=== PATIENT | female | born 1975 | race African-American/Black ===

== ENCOUNTER 2016-10-29 15:13 | Emergency (ER) | payer OTHER | END 2016-10-29 16:06 | disposition left against medical advice (07) | LOC: ER 16:06 | DX: Z53.21 Procedure and treatment not carried out due to patient leaving prior to being seen by health care provider (principal) | CPT/HCPCS: Z7610 ×2 ==

== ENCOUNTER 2016-11-30 14:05 | Inpatient (IN) | payer OTHER ==
[~2016-11-30] VITALS: Ht 167.6 cm; Wt 127.0 kg
[2016-11-30] MEDS ORDERED: KETOROLAC 30MG/ML VIAL IV ONE (14:45)
[2016-11-30 15:06] LABS: CHLORIDE 109 mEq/L (98-107); HEMATOCRIT. 28.4 % (36.0-48.0); HEMOGLOBIN. 8.9 g/dL (12.0-16.0); MEAN CORPUSCULAR HEMOGLOBIN 21.1 pg (28.0-32.0); MEAN CORPUSCULAR VOLUME 67.2 fL (81.0-99.0); MEAN PLATELET VOLUME 8.3 fl (7.4-10.4); PLATELET 337 x1000/uL (130-400); RED BLOOD CELL COUNT 4.22 mill/uL (4.2-5.4)
[2016-11-30 15:10] LABS: INR 1.1; PARTIAL THROMBOPLASTIN TIME 25.2 sec (23.4-31.0); PROTHROMBIN TIME 10.9 sec (9.4-11.6)
[2016-11-30 15:15] LABS: CARBON DIOXIDE 24 mEq/L (21-32); TROPONIN I < 0.02 ng/mL (0.00-0.04)
[2016-11-30] MEDS ORDERED: METHYLPREDNISOLONE SOD SUCC 125 MG/2 ML VIAL IV ONE (16:15)
[2016-11-30] MEDS ORDERED: ASPIRIN 325MG TABLET PO ONE (16:15)
[2016-11-30] MEDS ORDERED: MORPHINE SULFATE 4 MG/ML CPJ (NOT FOR IM USE) IV ONE (16:15)
[2016-11-30 16:45] LABS: PLATELET ESTIMATE NORMAL
[2016-11-30] MEDS ORDERED: IBUPROFEN 600MG TABLET PO PRN (17:00)
[2016-11-30] MEDS ORDERED: ACETAMINOPHEN 325MG TABLET PO PRN ×2 (17:00→19:00)
[2016-11-30] MEDS ORDERED: ONDANSETRON HCL 4MG/2ML VIAL IV PRN (19:00)
[2016-11-30] MEDS ORDERED: HYDROCODONE/ACETAMINOPHEN 5/325MG TABLET PO PRN (19:00)
[2016-11-30] MEDS ORDERED: IPRATROPIUM/ALBUTEROL 0.5-3(2.5)MG/3ML NEB INH PRN (19:00)
[2016-11-30] MEDS: DIPHENHYDRAMINE 50MG/ML VIAL IV PRN (19:02)
[2016-11-30] MEDS: MORPHINE SULFATE 4 MG/ML CPJ (NOT FOR IM USE) IV PRN ×2 (19:03→23:15)
[2016-11-30 20:00] VITALS: BP 135/67
[2016-11-30 20:37] VITALS: BP 145/74
[2016-11-30] MEDS: METHYLPREDNISOLONE SOD SUCC 125 MG/2 ML VIAL IV SCH (23:15)
[2016-11-30] MEDS: SODIUM CHLORIDE 0.9% INJ 3ML FLUSH IVF SCH (23:16)
[2016-11-30 23:19] LABS: CREATINE KINASE 54 IU/L (26-192); TROPONIN I < 0.02 ng/mL (0.00-0.04)
[2016-12-01] VITALS (9 sets, daily range): BP systolic 133–144; BP diastolic 64–73
[2016-12-01] MEDS ORDERED: ZOLPIDEM TARTRATE 5MG TABLET PO PRN (00:45)
[2016-12-01] MEDS: DIPHENHYDRAMINE 50MG/ML VIAL IV PRN ×3 (01:17→17:04)
[2016-12-01] MEDS: MORPHINE SULFATE 4 MG/ML CPJ (NOT FOR IM USE) IV PRN ×5 (04:11→21:01)
[2016-12-01] MEDS: METHYLPREDNISOLONE SOD SUCC 125 MG/2 ML VIAL IV SCH ×2 (04:14→08:18)
[2016-12-01] MEDS: SODIUM CHLORIDE 0.9% INJ 3ML FLUSH IVF SCH (06:26)
[2016-12-01 06:28] LABS: BASOPHILS % 0.2 % (0.0-2.0); HEMATOCRIT. 29.5 % (36.0-48.0); HEMOGLOBIN. 9.1 g/dL (12.0-16.0); LYMPHOCYTES % 9.5 % (20.0-50.0); MEAN CORPUSCULAR HEMOGLOBIN 20.9 pg (28.0-32.0); MEAN CORPUSCULAR VOLUME 67.9 fL (81.0-99.0); MEAN PLATELET VOLUME 8.6 fl (7.4-10.4); MONOCYTES % 0.7 % (2.0-8.0); NEUTROPHILS % 89.6 % (40.0-76.0); PLATELET 358 x1000/uL (130-400); RED BLOOD CELL COUNT 4.34 mill/uL (4.2-5.4); RED CELL DISTRIBUTION WIDTH 18.1 % (11.6-14.6)
[2016-12-01 07:53] LABS: CARBON DIOXIDE 20 mEq/L (21-32); CHLORIDE 108 mEq/L (98-107)
[2016-12-01 07:59] LABS: CREATINE KINASE 55 IU/L (26-192); HDL CHOLESTEROL 38 mg/dL (40-59); LDL CHOLESTEROL 106 mg/dL (5-100); TROPONIN I < 0.02 ng/mL (0.00-0.04)
[2016-12-01 08:48] LABS: CLARITY URINE TURBID (CLEAR); COLOR URINE YELLOW (YELLOW); GLUCOSE URINE 3+ (NEGATIVE); KETONES URINE 1+ (NEGATIVE); LEUKOCYTE ESTERASE URINE NEGATIVE (NEGATIVE); NITRITE URINE NEGATIVE (NEGATIVE); OCCULT BLOOD URINE NEGATIVE (NEGATIVE); PH URINE 5.5 (4.5-8.0); PROTEIN URINE NEGATIVE (NEGATIVE); SPECIFIC GRAVITY URINE 1.039 (1.005-1.030); UROBILINOGEN URINE 0.2 E.U./dL (0.2-1.0)
[2016-12-01 09:43] LABS: *AMPHETAMINES SCREEN URINE NEGATIVE (NEGATIVE); *BARBITURATES SCREEN URINE NEGATIVE (NEGATIVE); *BENZODIAZEPINES SCREEN URINE NEGATIVE (NEGATIVE); *COCAINE SCREEN URINE NEGATIVE (NEGATIVE); METHADONE URINE SCREEN NEGATIVE (NEGATIVE); PHENCYCLIDINE URINE SCREEN NEGATIVE (NEGATIVE)
[2016-12-01 10:07] LABS: CANNABINOID URINE SCREEN PRESUMTIVE POSITIVE (NEGATIVE); OPIATES URINE SCREEN PRESUMTIVE POSITIVE (NEGATIVE)
[2016-12-01 14:26] LABS: T4 FREE 0.94 ng/dL (0.76-1.46)
[2016-12-01 16:57] LABS: CREATINE KINASE 47 IU/L (26-192); CREATINE KINASE MB FRACTION < 0.5 ng/mL (0.5-3.6); TROPONIN I < 0.02 ng/mL (0.00-0.04)
[2016-12-01 18:53] LABS: HCG SCREEN NEGATIVE
== END 2016-12-01 21:27 | disposition short-term general hospital (02) | DRG 313 ==
LOC: ER 14:05 → 5WST 16:55 → ENRESERV 17:57 → UNDODISIN 12-01 13:50
PROVIDERS: ADMIT Family Medicine; ATTEND Family Medicine
DX: R07.9 Chest pain, unspecified (principal); I25.110 Atherosclerotic heart disease of native coronary artery with unstable angina pectoris; I10 Essential (primary) hypertension; D64.9 Anemia, unspecified; M54.30 Sciatica, unspecified side; R73.9 Hyperglycemia, unspecified; F12.90 Cannabis use, unspecified, uncomplicated; D86.9 Sarcoidosis, unspecified; E78.5 Hyperlipidemia, unspecified; F41.9 Anxiety disorder, unspecified; Z87.01 Personal history of pneumonia (recurrent); Z87.891 Personal history of nicotine dependence; Z95.0 Presence of cardiac pacemaker
CPT/HCPCS: 36415; 71010; 80053; 80061; 80305; 81001; 81025; 82550; 82553; 83036; 83880; 84439; 84443; 84484; 84703; 85025; 85379; 85610; 85730; 93005; 96374; 96375; 99285; J1200; J1885; J2270; J2930

== ENCOUNTER 2017-03-12 20:44 | Inpatient (IN) | payer OTHER ==
[~2017-03-12] VITALS: Ht 167.6 cm; Wt 127.0 kg
[2017-03-13] MEDS ORDERED: IPRATROPIUM BROMIDE (0.02%) 0.5MG/2.5ML NEB HHN STA (00:37)
[2017-03-13] MEDS ORDERED: ALBUTEROL (0.083%) 2.5MG/3ML NEB HHN STA (00:37)
[2017-03-13] MEDS ORDERED: METHYLPREDNISOLONE SOD SUCC 125 MG/2 ML VIAL IV STA (00:37)
[2017-03-13] MEDS ORDERED: ASPIRIN 81MG TABLET PO ONE (00:45)
[2017-03-13 01:16] LABS: BASOPHILS % 0.8 % (0.0-2.0); EOSINOPHILS % 2.1 % (0.0-5.0); HEMATOCRIT. 28.5 % (36.0-48.0); HEMOGLOBIN. 8.5 g/dL (12.0-16.0); LYMPHOCYTES % 20.9 % (20.0-50.0); MEAN CORPUSCULAR HEMOGLOBIN 19.7 pg (28.0-32.0); MEAN CORPUSCULAR VOLUME 65.9 fL (81.0-99.0); MEAN PLATELET VOLUME 7.5 fl (7.4-10.4); MONOCYTES % 14.1 % (2.0-8.0); NEUTROPHILS % 62.1 % (40.0-76.0); PLATELET 237 x1000/uL (130-400); RED BLOOD CELL COUNT 4.32 mill/uL (4.2-5.4)
[2017-03-13 01:18] LABS: PLATELET ESTIMATE NORMAL
[2017-03-13 01:22] LABS: INR 1.2; PROTHROMBIN TIME 12.1 sec (9.4-11.6)
[2017-03-13 01:32] LABS: CARBON DIOXIDE 23 mEq/L (21-32); CHLORIDE 108 mEq/L (98-107); TROPONIN I < 0.02 ng/mL (0.00-0.04)
[2017-03-13] MEDS ORDERED: KETOROLAC 30MG/ML VIAL IV ONE (01:45)
[2017-03-13] MEDS ORDERED: MORPHINE SULFATE 2 MG/ML CPJ (NOT FOR IM USE) IV ONE (03:15)
[2017-03-13] MEDS ORDERED: IPRATROPIUM/ALBUTEROL 0.5-3(2.5)MG/3ML NEB INH PRN (06:30)
[2017-03-13] MEDS ORDERED: MAGNESIUM/ALUMINUM HYDROXIDE/SIMETHICONE 30ML UDC PO PRN (06:30)
[2017-03-13] MEDS ORDERED: DOCUSATE SODIUM 100MG CAPSULE PO PRN (06:30)
[2017-03-13] MEDS ORDERED: ONDANSETRON HCL 4MG/2ML VIAL IV PRN (06:30)
[2017-03-13] MEDS ORDERED: NA PHOS,M-B/NA PHOS,DI-BA ENEMA 118ML PR PRN (06:30)
[2017-03-13] MEDS ORDERED: CLONIDINE 0.1MG TABLET PO PRN (06:30)
[2017-03-13] MEDS ORDERED: ACETAMINOPHEN 325MG TABLET PO PRN (06:30)
[2017-03-13] MEDS ORDERED: HYDROCODONE/APAP 7.5/325MG 1 TAB TABLET PO PRN (06:30)
[2017-03-13] MEDS: MORPHINE SULFATE 2 MG/ML CPJ (NOT FOR IM USE) IV PRN ×4 (08:24→20:30)
[2017-03-13] MEDS: GUAIFENESIN 200MG/10ML SUGAR FREE UDC PO PRN ×2 (08:56→20:29)
[2017-03-13] MEDS ORDERED: ASPIRIN 81MG EC TABLET PO SCH (09:00)
[2017-03-13] MEDS ORDERED: REGADENOSON 0.4 MG/5 ML IV NR (09:15)
[2017-03-13] MEDS: DIPHENHYDRAMINE 50MG/ML VIAL IV PRN ×3 (11:51→20:30)
[2017-03-13] MEDS: LORAZEPAM 0.5MG TABLET PO PRN ×3 (11:52→21:49)
[2017-03-13 12:04] LABS: *AMPHETAMINES SCREEN URINE NEGATIVE (NEGATIVE); *BARBITURATES SCREEN URINE NEGATIVE (NEGATIVE); *BENZODIAZEPINES SCREEN URINE NEGATIVE (NEGATIVE); *COCAINE SCREEN URINE NEGATIVE (NEGATIVE); METHADONE URINE SCREEN NEGATIVE (NEGATIVE); PHENCYCLIDINE URINE SCREEN NEGATIVE (NEGATIVE)
[2017-03-13 12:05] LABS: CANNABINOID URINE SCREEN PRESUMTIVE POSITIVE (NEGATIVE); OPIATES URINE SCREEN PRESUMTIVE POSITIVE (NEGATIVE)
[2017-03-13 12:30] VITALS: BP 115/77
[2017-03-13 13:58] VITALS: BP 115/77
[2017-03-13 16:00] VITALS: BP 125/69
[2017-03-13 18:33] LABS: CARBON DIOXIDE 22 mEq/L (21-32); CHLORIDE 107 mEq/L (98-107); CREATINE KINASE 307 IU/L (26-192); TROPONIN I < 0.02 ng/mL (0.00-0.04)
[2017-03-13 18:34] LABS: CREATINE KINASE MB FRACTION 0.6 ng/mL (0.5-3.6)
[2017-03-13 20:00] VITALS: BP 111/58
[2017-03-13] MEDS: ENOXAPARIN 40MG/0.4ML SYR SUBCUT SCH ×2 (20:29→20:34)
[2017-03-14] VITALS: BP 132/78
[2017-03-14] MEDS: DIPHENHYDRAMINE 50MG/ML VIAL IV PRN ×4 (00:35→15:39)
[2017-03-14] MEDS: MORPHINE SULFATE 2 MG/ML CPJ (NOT FOR IM USE) IV PRN ×4 (00:36→15:40)
[2017-03-14 01:35] LABS: CREATINE KINASE 261 IU/L (26-192); CREATINE KINASE MB FRACTION 0.5 ng/mL (0.5-3.6); TROPONIN I < 0.02 ng/mL (0.00-0.04)
[2017-03-14 04:00] VITALS: BP 122/65
[2017-03-14] MEDS: GUAIFENESIN 200MG/10ML SUGAR FREE UDC PO PRN (05:20)
[2017-03-14] MEDS: ENOXAPARIN 40MG/0.4ML SYR SUBCUT SCH (08:54)
[2017-03-14] MEDS ORDERED: ASPIRIN 81MG TABLET PO SCH (09:00)
[2017-03-14] MEDS: LORAZEPAM 0.5MG TABLET PO PRN ×2 (10:26→15:39)
[2017-03-14 10:29] LABS: BASOPHILS % 0.6 % (0.0-2.0); EOSINOPHILS % 0.6 % (0.0-5.0); HEMATOCRIT. 30.1 % (36.0-48.0); HEMOGLOBIN. 9.3 g/dL (12.0-16.0); LYMPHOCYTES % 18.3 % (20.0-50.0); MEAN CORPUSCULAR HEMOGLOBIN 20.2 pg (28.0-32.0); MEAN CORPUSCULAR VOLUME 65.4 fL (81.0-99.0); MEAN PLATELET VOLUME 8.4 fl (7.4-10.4); MONOCYTES % 8.9 % (2.0-8.0); NEUTROPHILS % 71.6 % (40.0-76.0); PLATELET 308 x1000/uL (130-400); RED CELL DISTRIBUTION WIDTH 19.2 % (11.6-14.6)
[2017-03-14 11:13] LABS: CARBON DIOXIDE 23 mEq/L (21-32); CHLORIDE 109 mEq/L (98-107); CREATINE KINASE 209 IU/L (26-192); CREATINE KINASE MB FRACTION 0.6 ng/mL (0.5-3.6); HDL CHOLESTEROL 25 mg/dL (40-59); LDL CHOLESTEROL 93 mg/dL (5-100); T4 FREE 0.98 ng/dL (0.76-1.46)
[2017-03-14 13:22] VITALS: BP 111/84
[2017-03-14 15:40] VITALS: BP 111/84
== END 2017-03-14 17:10 | disposition home or self-care (01) | DRG 313 ==
LOC: ER 21:20 → EDBEDREQTM 03-13 04:02 → EDBEDREQ 03-13 04:02 → EDBEDREQSVC 03-13 08:01 → ENRESERV 03-13 12:57 → 7WST 03-13 13:30
PROVIDERS: ADMIT Internal Medicine; ATTEND Internal Medicine
DX: R07.89 Other chest pain (principal); I25.10 Atherosclerotic heart disease of native coronary artery without angina pectoris; Z68.42 Body mass index [BMI] 45.0-49.9, adult; F41.9 Anxiety disorder, unspecified; J45.909 Unspecified asthma, uncomplicated; E66.9 Obesity, unspecified; I10 Essential (primary) hypertension; Z95.0 Presence of cardiac pacemaker
CPT/HCPCS: 36415; 71010; 80048; 80053; 80061; 80305; 81025; 82550; 82553; 83036; 83880; 84439; 84443; 84484; 85025; 85379; 85610; 93005; 93306; 94640; 94664; 96374; 96375; 99285; J1200; J1650; J1885; J2270; J2930; J7040; J7611; J7620

== ENCOUNTER 2018-09-05 21:31 | Inpatient (IN) | payer SELFPAY ==
[~2018-09-05] VITALS: Ht 167.6 cm; Wt 125.6 kg
[~2018-09-05 21:31] MED LIST: ATOR20TA PO; FERR325T23 PO
[2018-09-05] MEDS ORDERED: MORPHINE SULFATE 4 MG/ML CPJ (NOT FOR IM USE) IV STA (23:12)
[2018-09-05] MEDS ORDERED: ONDANSETRON HCL 4MG/2ML INJ IV STA (23:12)
[2018-09-05] MEDS ORDERED: ASPIRIN 81MG TABLET PO ONE (23:15)
[2018-09-05] MEDS ORDERED: FUROSEMIDE 40MG/4ML VIAL IV ONE (23:15)
[2018-09-05 23:54] LABS: EOSINOPHILS % 4.8 % (0.0-5.0); HEMATOCRIT. 26.2 % (36.0-48.0); HEMOGLOBIN. 7.9 g/dL (12.0-16.0); LYMPHOCYTES % 27.1 % (20.0-50.0); MEAN CORPUSCULAR HEMOGLOBIN 19.1 pg (28.0-32.0); MEAN CORPUSCULAR VOLUME 63.2 fL (81.0-99.0); MEAN PLATELET VOLUME 7.8 fl (7.4-10.4); MONOCYTES % 10.8 % (2.0-8.0); NEUTROPHILS % 56.3 % (40.0-76.0); PLATELET 313 x1000/uL (130-400); RED BLOOD CELL COUNT 4.15 mill/uL (4.2-5.4); RED CELL DISTRIBUTION WIDTH 18.9 % (11.6-14.6)
[2018-09-05 23:56] LABS: CHLORIDE 109 mEq/L (98-107)
[2018-09-06 00:01] LABS: ETHANOL BLOOD < 10 mg/dL
[2018-09-06 00:16] LABS: INR 1.1; PARTIAL THROMBOPLASTIN TIME 28.1 sec (23.4-31.0); PROTHROMBIN TIME 10.9 sec (9.6-11.0)
[2018-09-06 00:54] LABS: PLATELET ESTIMATE NORMAL
[2018-09-06 01:26] LABS: CLARITY URINE CLOUDY (CLEAR); COLOR URINE YELLOW (YELLOW); KETONES URINE NEGATIVE (NEGATIVE); LEUKOCYTE ESTERASE URINE 1+ (NEGATIVE); NITRITE URINE NEGATIVE (NEGATIVE); OCCULT BLOOD URINE 2+ (NEGATIVE); PH URINE 5.5 (4.5-8.0); PROTEIN URINE NEGATIVE (NEGATIVE); SPECIFIC GRAVITY URINE 1.011 (1.005-1.030); UROBILINOGEN URINE 0.2 E.U./dL (0.2-1.0)
[2018-09-06 01:39] LABS: *AMPHETAMINES SCREEN URINE NEGATIVE (NEGATIVE); *BARBITURATES SCREEN URINE NEGATIVE (NEGATIVE)
[2018-09-06 01:40] LABS: *COCAINE SCREEN URINE NEGATIVE (NEGATIVE); METHADONE URINE SCREEN NEGATIVE (NEGATIVE); PHENCYCLIDINE URINE SCREEN NEGATIVE (NEGATIVE)
[2018-09-06 01:49] LABS: *BENZODIAZEPINES SCREEN URINE PRESUMTIVE POSITIVE (NEGATIVE); CANNABINOID URINE SCREEN PRESUMTIVE POSITIVE (NEGATIVE); OPIATES URINE SCREEN PRESUMTIVE POSITIVE (NEGATIVE)
[2018-09-06] MEDS ORDERED: MORPHINE SULFATE 4 MG/ML CPJ (NOT FOR IM USE) IV ONE (03:15)
[2018-09-06] MEDS ORDERED: ONDANSETRON HCL 4MG/2ML INJ IV ONE (03:15)
[2018-09-06] MEDS ORDERED: CEFTRIAXONE 1 G PREMIX 50 ML IV ONE (03:45)
[2018-09-06] MEDS ORDERED: HYDRALAZINE 20MG/ML VIAL IV PRN (07:45)
[2018-09-06] MEDS ORDERED: HYDROCODONE/ACETAMINOPHEN 10/325MG TABLET PO PRN (07:45)
[2018-09-06] MEDS ORDERED: MAGNESIUM/ALUMINUM HYDROXIDE/SIMETHICONE 30ML UDC PO PRN (07:45)
[2018-09-06] MEDS ORDERED: NA PHOS,M-B/NA PHOS,DI-BA ENEMA 118ML PR PRN (07:45)
[2018-09-06] MEDS ORDERED: LORAZEPAM 2MG/ML CPJ IV PRN (07:45)
[2018-09-06] MEDS ORDERED: ONDANSETRON HCL 4MG/2ML INJ IV PRN (07:45)
[2018-09-06] MEDS ORDERED: DOCUSATE SODIUM 100MG CAPSULE PO PRN (07:45)
[2018-09-06] MEDS ORDERED: GUAIFENESIN 200MG/10ML SUGAR FREE UDC PO PRN (07:45)
[2018-09-06] MEDS ORDERED: CLONIDINE 0.1MG TABLET PO PRN (07:45)
[2018-09-06] MEDS ORDERED: DIPHENHYDRAMINE 50MG/ML VIAL IV PRN (07:45)
[2018-09-06] MEDS ORDERED: ACETAMINOPHEN 325MG TABLET PO PRN (07:45)
[2018-09-06 08:00] VITALS: BP 119/72
[2018-09-06 09:00] VITALS: BP 119/72
[2018-09-06] MEDS: HYDROMORPHONE HCL/PF 2MG/ML CPJ IV PRN ×3 (09:39→21:52)
[2018-09-06] MEDS: IPRATROPIUM/ALBUTEROL 0.5-3(2.5)MG/3ML NEB INH PRN ×2 (11:02→16:00)
[2018-09-06] MEDS: FUROSEMIDE 40MG/4ML VIAL IVP SCH (11:08)
[2018-09-06 12:00] VITALS: BP 136/64
[2018-09-06] MEDS: SODIUM CHLORIDE 0.9% INJ 3ML FLUSH IVF SCH ×2 (14:41→21:52)
[2018-09-06 16:00] VITALS: BP 131/81
[2018-09-06 17:41] LABS: CHLORIDE 105 mEq/L (98-107)
[2018-09-06 17:53] LABS: CREATINE KINASE 102 IU/L (26-192)
[2018-09-06 17:54] LABS: CREATINE KINASE MB FRACTION < 1.0 ng/mL (0.5-3.6)
[2018-09-07 00:10] LABS: CREATINE KINASE 130 IU/L (26-192)
[2018-09-07 00:12] LABS: CREATINE KINASE MB FRACTION < 1.0 ng/mL (0.5-3.6)
[2018-09-07 04:00] VITALS: BP 115/63
[2018-09-07] MEDS: HYDROMORPHONE HCL/PF 2MG/ML CPJ IV PRN (05:10)
[2018-09-07] MEDS: SODIUM CHLORIDE 0.9% INJ 3ML FLUSH IVF SCH (05:27)
[2018-09-07 08:00] VITALS: BP 100/56
[2018-09-07 09:03] LABS: BASOPHILS % 1.4 % (0.0-2.0); EOSINOPHILS % 4.5 % (0.0-5.0); HEMATOCRIT. 27.1 % (36.0-48.0); HEMOGLOBIN. 8.2 g/dL (12.0-16.0); LYMPHOCYTES % 22.8 % (20.0-50.0); MEAN CORPUSCULAR VOLUME 63.2 fL (81.0-99.0); MEAN PLATELET VOLUME 8.5 fl (7.4-10.4); MONOCYTES % 9.8 % (2.0-8.0); NEUTROPHILS % 61.5 % (40.0-76.0); PLATELET 322 x1000/uL (130-400); RED BLOOD CELL COUNT 4.29 mill/uL (4.2-5.4); RED CELL DISTRIBUTION WIDTH 19.3 % (11.6-14.6)
[2018-09-07] MEDS: FUROSEMIDE 40MG/4ML VIAL IVP SCH (09:20)
[2018-09-07 09:24] LABS: CHLORIDE 105 mEq/L (98-107)
[2018-09-07 09:37] LABS: LDL CHOLESTEROL 102 mg/dL (5-100)
[2018-09-07 09:38] VITALS: BP 122/82
[2018-09-07 09:40] LABS: HDL CHOLESTEROL 25 mg/dL (40-59); T4 FREE 1.03 ng/dL (0.76-1.46)
== END 2018-09-07 10:02 | disposition home or self-care (01) | DRG 203 ==
LOC: ER 21:31 → 8WST 09-06 02:44 → EDBEDREQTM 09-06 02:47 → EDBEDREQ 09-06 02:47 → ENRESERV 09-06 07:04
PROVIDERS: ADMIT Internal Medicine; ATTEND Internal Medicine
DX: R07.9 Chest pain, unspecified (principal); I11.0 Hypertensive heart disease with heart failure; I50.9 Heart failure, unspecified; N39.0 Urinary tract infection, site not specified; D64.9 Anemia, unspecified; F19.90 Other psychoactive substance use, unspecified, uncomplicated; Z95.810 Presence of automatic (implantable) cardiac defibrillator; Z98.891 History of uterine scar from previous surgery; Z98.51 Tubal ligation status; Z79.899 Other long term (current) drug therapy
CPT/HCPCS: 36415; 71045; 80048; 80061; 80305; 80320; 82550; 82553; 83880; 84439; 84443; 84484; 93005; 93970; 94640; 96365; 96375; 96376; 99285; J0696; J1170; J1940; J2270; J2405; J7620; G0480

== ENCOUNTER 2019-11-08 12:15 | Emergency (ER) | payer SELFPAY ==
[~2019-11-08] VITALS: Ht 177.8 cm; Wt 120.0 kg
[~2019-11-08 12:15] MED LIST changes: -ATOR20TA PO; +CYCL10TA7 PO; -FERR325T23 PO; +FURO40TA5 PO; +IBUP-2030 PO; +TRAM50TA3 PO
[2019-11-08 13:14] LABS: CLARITY URINE CLEAR (CLEAR); COLOR URINE YELLOW (YELLOW); KETONES URINE NEGATIVE (NEGATIVE); LEUKOCYTE ESTERASE URINE NEGATIVE (NEGATIVE); NITRITE URINE NEGATIVE (NEGATIVE); OCCULT BLOOD URINE NEGATIVE (NEGATIVE); PH URINE 5.5 (4.5-8.0); PROTEIN URINE NEGATIVE (NEGATIVE); SPECIFIC GRAVITY URINE 1.015 (1.005-1.030); UROBILINOGEN URINE 0.2 E.U./dL (0.2-1.0)
[2019-11-08 13:28] LABS: CHLORIDE 109 mEq/L (98-107)
[2019-11-08 13:31] LABS: BASOPHILS % 1.2 % (0.0-2.0); EOSINOPHILS % 3.5 % (0.0-5.0); HEMATOCRIT. 26.8 % (36.0-48.0); LYMPHOCYTES % 22.9 % (20.0-50.0); MEAN CORPUSCULAR HEMOGLOBIN 17.7 pg (28.0-32.0); MEAN CORPUSCULAR VOLUME 59.3 fL (81.0-99.0); MEAN PLATELET VOLUME 8.8 fl (7.4-10.4); MONOCYTES % 8.7 % (2.0-8.0); NEUTROPHILS % 63.7 % (40.0-76.0); PLATELET 312 x1000/uL (130-400); RED BLOOD CELL COUNT 4.52 mill/uL (4.2-5.4); RED CELL DISTRIBUTION WIDTH 19.6 % (11.6-14.6)
[2019-11-08 13:57] LABS: PLATELET ESTIMATE NORMAL
[2019-11-08] MEDS ORDERED: ONDANSETRON HCL 4MG/2ML INJ IV ONE ×2 (14:00→18:15)
[2019-11-08] MEDS ORDERED: MORPHINE SULFATE 2 MG/ML CPJ (NOT FOR IM USE) IV ONE ×2 (14:00→18:15)
[2019-11-08 16:56] LABS: *AMPHETAMINES SCREEN URINE NEGATIVE (NEGATIVE); *BARBITURATES SCREEN URINE NEGATIVE (NEGATIVE); *BENZODIAZEPINES SCREEN URINE NEGATIVE (NEGATIVE); *COCAINE SCREEN URINE NEGATIVE (NEGATIVE); METHADONE URINE SCREEN NEGATIVE (NEGATIVE)
[2019-11-08 16:57] LABS: OPIATES URINE SCREEN NEGATIVE (NEGATIVE); PHENCYCLIDINE URINE SCREEN NEGATIVE (NEGATIVE)
[2019-11-08 16:58] LABS: CANNABINOID URINE SCREEN PRESUMTIVE POSITIVE (NEGATIVE)
[2019-11-08 19:03] VITALS: BP 135/85
== END 2019-11-08 19:16 | disposition home or self-care (01) ==
LOC: ER 12:15
DX: R07.89 Other chest pain (principal); R06.02 Shortness of breath; R42 Dizziness and giddiness; D50.9 Iron deficiency anemia, unspecified; E87.8 Other disorders of electrolyte and fluid balance, not elsewhere classified; E83.51 Hypocalcemia; I51.9 Heart disease, unspecified; I51.7 Cardiomegaly; Z95.0 Presence of cardiac pacemaker; Z79.899 Other long term (current) drug therapy
CPT/HCPCS: 36415; 71045; 80053; 80305; 81003; 81025; 83880; 84484; 85025; 93005; 96374; 96375; 96376; 99285; J2270; J2405

== ENCOUNTER 2020-06-06 16:28 | Emergency (ER) | payer MEDICAID, OTHER ==
[~2020-06-06] VITALS: Ht 167.6 cm; Wt 114.0 kg
[~2020-06-06 16:28] MED LIST changes: -CYCL10TA7 PO; +DOCU100T MT; +FERR325T23 PO; +FURO-151 MT; -FURO40TA5 PO; -IBUP-2030 PO; +P20 MT; +SENN-257 MT; +TOPUD PO
[2020-06-06] MEDS ORDERED: MORPHINE SULFATE 4 MG/ML CPJ (NOT FOR IM USE) IV STA (17:03)
[2020-06-06] MEDS ORDERED: ONDANSETRON HCL 4MG/2ML INJ IV STA (17:03)
[2020-06-06] MEDS ORDERED: ASPIRIN 81MG TABLET PO ONE (17:15)
[2020-06-06] MEDS ORDERED: NITROGLYCERIN OINT 1GM/INCH UDPKT TD ONE (17:15)
[2020-06-06 17:23] LABS: HEMATOCRIT. 31.4 % (36.0-48.0); HEMOGLOBIN. 9.4 g/dL (12.0-16.0); MEAN CORPUSCULAR HEMOGLOBIN 19.6 pg (28.0-32.0); MEAN CORPUSCULAR VOLUME 65.2 fL (81.0-99.0); MEAN PLATELET VOLUME 8.2 fl (7.4-10.4); PLATELET 318 x1000/uL (130-400); RED BLOOD CELL COUNT 4.81 mill/uL (4.2-5.4); RED CELL DISTRIBUTION WIDTH 18.2 % (11.6-14.6)
[2020-06-06 17:23] LABS: CLARITY URINE CLEAR (CLEAR); COLOR URINE YELLOW (YELLOW); KETONES URINE NEGATIVE (NEGATIVE); LEUKOCYTE ESTERASE URINE NEGATIVE (NEGATIVE); NITRITE URINE NEGATIVE (NEGATIVE); OCCULT BLOOD URINE NEGATIVE (NEGATIVE); PH URINE 6.5 (4.5-8.0); PROTEIN URINE NEGATIVE (NEGATIVE); SPECIFIC GRAVITY URINE 1.022 (1.005-1.030); UROBILINOGEN URINE 0.2 E.U./dL (0.2-1.0)
[2020-06-06 17:27] LABS: CHLORIDE 109 mEq/L (98-107)
[2020-06-06 17:30] LABS: PROTHROMBIN TIME 11.1 sec (9.6-11.0)
[2020-06-06 17:34] LABS: *AMPHETAMINES SCREEN URINE NEGATIVE (NEGATIVE)
[2020-06-06 17:35] LABS: *BARBITURATES SCREEN URINE NEGATIVE (NEGATIVE); *BENZODIAZEPINES SCREEN URINE NEGATIVE (NEGATIVE); *COCAINE SCREEN URINE NEGATIVE (NEGATIVE); METHADONE URINE SCREEN NEGATIVE (NEGATIVE); OPIATES URINE SCREEN NEGATIVE (NEGATIVE)
[2020-06-06 17:37] LABS: HCG SCREEN NEGATIVE
[2020-06-06 17:40] LABS: PLATELET ESTIMATE NORMAL
[2020-06-06 17:46] LABS: PHENCYCLIDINE URINE SCREEN NEGATIVE (NEGATIVE)
[2020-06-06 17:51] LABS: CANNABINOID URINE SCREEN PRESUMTIVE POSITIVE (NEGATIVE)
[2020-06-06 22:14] VITALS: BP 156/86
== END 2020-06-06 22:27 | disposition short-term general hospital (02) ==
LOC: ER 16:28 → CANBEDREQ 21:38 → ER 22:27
DX: R07.89 Other chest pain (principal); I10 Essential (primary) hypertension; D86.9 Sarcoidosis, unspecified; Z95.810 Presence of automatic (implantable) cardiac defibrillator
CPT/HCPCS: 36415; 71045; 80053; 80305; 81003; 81025; 83690; 83880; 84484; 84703; 85025; 85610; 93005; 96374; 96375; 99285; J2270; J2405; Z7610